=== PATIENT | male | born 1995 | race Caucasian/White ===

== ENCOUNTER 2019-04-30 08:21 | Emergency (ER) | payer OTHER ==
[~2019-04-30] VITALS: Ht 185.4 cm; Wt 81.8 kg
[~2019-04-30 08:21] MED LIST: CELE20TA PO; TRAZ-252 PO; no home meds
[2019-04-30 09:09] LABS: BASO % 0.6 % (0.0-1.0); EOS # 0.1 10^3/uL (0.0-0.50); EOS % 1.9 % (0.0-3.0); HEMATOCRIT 45.5 % (42.0-52.0); HEMOGLOBIN 15.4 g/dl (13.5-17.5); LYMPH # 1.5 10^3/uL (1.5-6.5); LYMPH % 23.7 % (24.0-44.0); MEAN CORPUSCULAR HEMOGLOBIN 32.6 pg (27.0-33.0); MEAN CORPUSCULAR HGB CONC 33.8 g/dl (32.0-36.5); MEAN CORPUSCULAR VOLUME 96.4 fl (80.0-96.0); MONO # 0.5 10^3/uL (0.0-0.8); MONO % 8.1 % (0.0-5.0); NEUTROPHILS # 4.1 10^3/uL (1.8-7.7); NEUTROPHILS % 65.4 % (36.0-66.0); PLATELET COUNT, AUTOMATED 171 10^3/uL (150-450); RED BLOOD COUNT 4.72 10^6/uL (4.30-6.10); WHITE BLOOD COUNT 6.3 10^3/uL (4.0-10.0)
[2019-04-30 09:34] LABS: ALBUMIN 4.2 GM/DL (3.2-5.2); ALT/SGPT 38 U/L (12-78); BILIRUBIN,TOTAL 0.7 MG/DL (0.2-1.0); BLOOD UREA NITROGEN 13 MG/DL (7-18); CALCIUM LEVEL 9.3 MG/DL (8.5-10.1); CARBON DIOXIDE LEVEL 32 MEQ/L (21-32); CHLORIDE LEVEL 107 MEQ/L (98-107); CREATININE FOR GFR 0.89 MG/DL (0.70-1.30); GLOMERULAR FILTRATION RATE > 60.0 (>60); GLUCOSE, FASTING 81 MG/DL (70-100); POTASSIUM SERUM 4.4 MEQ/L (3.5-5.1); SODIUM LEVEL 141 MEQ/L (136-145); TOTAL PROTEIN 7.1 GM/DL (6.4-8.2)
[2019-04-30] MEDS ORDERED: EXPOSURE KIT-ADULT 7 DAY SUPPLY PO ONE (09:45)
[2019-04-30] MEDS ORDERED: RALT40TA PO (09:51)
[2019-04-30] MEDS ORDERED: TRUVTAB PO (09:51)
[2019-04-30 10:32] VITALS: BP 111/63
[2019-04-30] MEDS ORDERED: IBUP-1114 PO (16:55)
[2019-05-01 08:34] LABS: HEPATITIS B SURFACE ANTIBODY NEGATIVE (POSITIVE)
[2019-05-01 08:44] LABS: HEPATITIS B SURFACE ANTIGEN NEGATIVE (NEGATIVE)
[2019-05-01 09:13] LABS: HEPATITIS C VIRUS ABY INDEX < 0.0 INDEX (<0.8)
== END 2019-04-30 10:33 | disposition home or self-care (01) ==
LOC: M ED 08:21
DX: Z77.21 Contact with and (suspected) exposure to potentially hazardous body fluids (principal); S61.042A Puncture wound with foreign body of left thumb without damage to nail, initial encounter; W46.1XXA Contact with contaminated hypodermic needle, initial encounter; Y92.89 Other specified places as the place of occurrence of the external cause; Y93.89 Activity, other specified; Y99.0 Civilian activity done for income or pay; Z72.0 Tobacco use; F12.10 Cannabis abuse, uncomplicated

== ENCOUNTER 2019-04-30 16:00 | Emergency (ER) | payer OTHER, SELFPAY ==
[~2019-04-30] VITALS: Ht 185.4 cm; Wt 81.8 kg
[2019-04-30 16:00] VITALS: BP 135/65
[~2019-04-30 16:00] MED LIST changes: +RALT40TA PO; +TRUVTAB PO
[2019-04-30] MEDS ORDERED: IBUP-1114 PO (16:55)
--- NOTE | 2019-05-01 07:48 | REP ---
LEFT SHOULDER, THREE VIEWS: There is no evidence of an acute fracture, dislocation or intrinsic bone disease. IMPRESSION: No fracture or dislocation. Electronically Signed by Cristi Merino MD 05/01/2019 08:41 A
== END 2019-04-30 17:05 | disposition home or self-care (01) ==
LOC: M ED 16:00
DX: S43.102A Unspecified dislocation of left acromioclavicular joint, initial encounter (principal); W01.10XA Fall on same level from slipping, tripping and stumbling with subsequent striking against unspecified object, initial encounter; Y92.099 Unspecified place in other non-institutional residence as the place of occurrence of the external cause; Y93.67 Activity, basketball; Y99.9 Unspecified external cause status; M24.412 Recurrent dislocation, left shoulder; Z72.0 Tobacco use

== ENCOUNTER 2020-03-17 12:19 | Emergency (ER) | payer MEDICAID, SELFPAY ==
[~2020-03-17] VITALS: Ht 185.4 cm; Wt 74.2 kg
[~2020-03-17 12:19] MED LIST changes: +IBUP-1114 PO
[2020-03-17 14:27] VITALS: BP 142/79
== END 2020-03-17 14:30 | disposition home or self-care (01) ==
LOC: M ED 12:19
DX: F33.9 Major depressive disorder, recurrent, unspecified (principal); F17.210 Nicotine dependence, cigarettes, uncomplicated

== ENCOUNTER 2020-08-29 17:27 | Emergency (ER) | payer OTHER ==
[~2020-08-29] VITALS: Ht 188 cm; Wt 78.3 kg
[2020-08-29 17:27] VITALS: BP 119/57
[2020-08-29] MEDS ORDERED: TRAZ-252 (17:40)
[2020-08-29] MEDS ORDERED: PROZ10CA7 (17:40)
--- NOTE | 2020-08-29 18:11 | REPVR ---
PROCEDURE INFORMATION: Exam: XR Right Knee Exam date and time: 08/29/2020 5:41 PM Age: 25 years old Clinical indication: Pain and injury or trauma; Fall; Sprain or strain; Patella or knee; Right; Additional info: Pain after falling out of truck TECHNIQUE: Imaging protocol: XR Right knee. Views: 4 or more views. COMPARISON: No relevant prior studies available. FINDINGS: Bones/joints: No acute fracture or dislocation. Joint spaces are unremarkable. Soft tissues: Mild prepatellar soft tissue swelling. IMPRESSION: No acute fracture or dislocation. Electronically signed by: Ramy Ray On 08/29/2020 18:11:47 PM
== END 2020-08-29 20:25 | disposition home or self-care (01) ==
LOC: M ED 17:27
DX: S80.01XA Contusion of right knee, initial encounter (principal); S80.211A Abrasion, right knee, initial encounter; W19.XXXA Unspecified fall, initial encounter; Y92.89 Other specified places as the place of occurrence of the external cause; Y93.89 Activity, other specified; Y99.0 Civilian activity done for income or pay; Z87.828 Personal history of other (healed) physical injury and trauma; F32.9 Major depressive disorder, single episode, unspecified; F43.10 Post-traumatic stress disorder, unspecified; R56.9 Unspecified convulsions; F17.200 Nicotine dependence, unspecified, uncomplicated; F12.10 Cannabis abuse, uncomplicated; J30.9 Allergic rhinitis, unspecified

== ENCOUNTER 2020-09-08 14:36 | Emergency (ER) | payer OTHER ==
[~2020-09-08] VITALS: Ht 188 cm; Wt 84.1 kg
[~2020-09-08 14:36] MED LIST changes: +PROZ10CA7; +TRAZ-252
[2020-09-08 14:51] VITALS: BP 133/67
== END 2020-09-08 15:50 | disposition home or self-care (01) ==
LOC: M ED 14:36
DX: R45.89 Other symptoms and signs involving emotional state (principal); J30.89 Other allergic rhinitis; Z63.0 Problems in relationship with spouse or partner

== ENCOUNTER 2020-09-13 16:43 | Emergency (ER) | payer OTHER ==
[~2020-09-13] VITALS: Ht 185.4 cm; Wt 84.1 kg
[2020-09-13 16:55] VITALS: BP 148/89
[2020-09-13] MEDS ORDERED: PROZ10CA7 PO (17:04)
== END 2020-09-13 17:53 | disposition home or self-care (01) ==
LOC: M ED 16:43
DX: F43.0 Acute stress reaction (principal); R56.9 Unspecified convulsions; F17.200 Nicotine dependence, unspecified, uncomplicated; J30.89 Other allergic rhinitis; Z79.899 Other long term (current) drug therapy

== ENCOUNTER 2022-03-09 08:51 | Emergency (ER) | payer OTHER ==
[~2022-03-09] VITALS: Ht 188 cm; Wt 76.8 kg
[~2022-03-09 08:51] MED LIST changes: +CARA1TAB6 PO; +EMTR1TAB16 PO; +ONDA4TAB6 PO; +PROT1TAB2 PO; +PROZ10CA7 PO; -TRUVTAB PO
[2022-03-09 08:52] VITALS: BP 125/64
[2022-03-09] MEDS ORDERED: IBUP200T46 PO (08:58)
== END 2022-03-09 15:28 | disposition left against medical advice (07) ==
LOC: M ED 08:51
DX: Z53.21 Procedure and treatment not carried out due to patient leaving prior to being seen by health care provider (principal)

== ENCOUNTER 2023-05-20 08:49 | Emergency (ER) | payer OTHER ==
[~2023-05-20] VITALS: Ht 188 cm; Wt 70.6 kg
[~2023-05-20 08:49] MED LIST changes: +IBUP200T46 PO
[2023-05-20] MEDS ORDERED: KETOROLAC 30 MG/ML 1ML VIAL IV ONE (11:25)
[2023-05-20 11:58] LABS: BASO # 0.1 10^3/uL (0.0-0.2); BASO % 0.9 % (0.0-1.0); EOS # 0.1 10^3/uL (0.0-0.5); EOS % 1.5 % (0.0-3.0); HEMATOCRIT 44.2 % (42.0-52.0); HEMOGLOBIN 15.3 g/dl (13.5-17.5); LYMPH # 2.2 10^3/uL (1.5-5.0); LYMPH % 41.3 % (24.0-44.0); MEAN CORPUSCULAR HGB CONC 34.6 g/dl (32.0-36.5); MEAN CORPUSCULAR VOLUME 92.5 fl (80.0-96.0); MONO # 0.6 10^3/uL (0.0-0.8); MONO % 10.8 % (2.0-8.0); NEUTROPHILS # 2.4 10^3/uL (1.5-8.5); NEUTROPHILS % 45.3 % (36.0-66.0); PLATELET COUNT, AUTOMATED 202 10^3/uL (150-450); RED BLOOD COUNT 4.78 10^6/uL (4.30-6.10); WHITE BLOOD COUNT 5.4 10^3/uL (4.0-10.0)
[2023-05-20] MEDS ORDERED: ISOVUE-370 76% 100ML VIAL As Ordered ONE (12:11)
[2023-05-20 12:18] LABS: INR 0.92; PROTHROMBIN TIME 12.6 SECONDS (12.5-14.5)
[2023-05-20 12:19] LABS: PARTIAL THROMBOPLASTIN TIME 26.5 SECONDS (24.8-34.2)
[2023-05-20 12:31] LABS: ALBUMIN 4.9 G/DL (3.2-5.2); BILIRUBIN,DIRECT 0.3 MG/DL (<0.4); TOTAL PROTEIN 7.4 G/DL (5.7-8.2)
[2023-05-20] MEDS ORDERED: ANUS25SU PR (13:33)
[2023-05-20] MEDS ORDERED: NAPR-837 PO (13:33)
[2023-05-20 14:03] VITALS: BP 133/72; TEMP 97.7; O2SAT 99
== END 2023-05-20 14:05 | disposition home or self-care (01) ==
LOC: M ED 08:49
DX: R10.32 Left lower quadrant pain (principal); K62.5 Hemorrhage of anus and rectum; J30.89 Other allergic rhinitis
CPT/HCPCS: 74177; 80047; 80076; 83690; 85025; 85610; 85730; 96374; 99284; J1885; Q9967

== ENCOUNTER → 2023-09-07 | Outpatient (CLI) | payer OTHER ==
[~2023-09-07] MED LIST changes: +ANUS25SU PR; +NAPR-837 PO
== END ==
LOC: M RAD 12:06
PROVIDERS: ATTEND Physician Assistant Medical
DX: M25.512 Pain in left shoulder (principal); Z91.81 History of falling

== ENCOUNTER 2024-08-07 15:13 | Emergency (ER) | payer OTHER ==
[~2024-08-07] VITALS: Ht 185.4 cm; Wt 77.3 kg
[~2024-08-07 15:13] MED LIST changes: +ONDA-282 PO; -ONDA4TAB6 PO
[2024-08-07 16:54] VITALS: BP 112/58; TEMP 98.8; O2SAT 98
== END 2024-08-07 16:59 | disposition home or self-care (01) ==
LOC: M ED 15:13
DX: S93.401A Sprain of unspecified ligament of right ankle, initial encounter (principal); X50.1XXA Overexertion from prolonged static or awkward postures, initial encounter; Y92.9 Unspecified place or not applicable; Y93.9 Activity, unspecified; Y99.9 Unspecified external cause status; J30.89 Other allergic rhinitis; F17.200 Nicotine dependence, unspecified, uncomplicated

== ENCOUNTER 2025-09-02 17:17 | Emergency (ER) | payer OTHER, SELFPAY ==
[~2025-09-02 17:17] MED LIST changes: +PROZ10CA11; +PROZ10CA11 PO; -PROZ10CA7; -PROZ10CA7 PO
[2025-09-02 17:58] LABS: BASO # 0.1 10^3/uL (0.0-0.2); BASO % 0.7 % (0.0-1.0); EOS # 0.0 10^3/uL (0.0-0.5); EOS % 0.1 % (0.0-3.0); LYMPH # 1.6 10^3/uL (1.5-5.0); LYMPH % 23.6 % (24.0-44.0); MONO # 0.7 10^3/uL (0.0-0.8); MONO % 9.5 % (2.0-8.0); NEUTROPHILS # 4.5 10^3/uL (1.5-8.5); NEUTROPHILS % 66.0 % (36.0-66.0); PLATELET COUNT, AUTOMATED 210 10^3/uL (150-450)
[2025-09-02 18:52] LABS: KETONE, URINE AUTO RFX NEGATIVE (NEGATIVE); LEUKOCYTE ESTERASE UR AUTO RFX NEGATIVE (NEGATIVE); NITRITE, URINE AUTO RFX NEGATIVE (NEGATIVE); RBC, URINE AUTO RFX 0 /HPF (0-3); SQUAM EPITHELIAL CELL UR AURFX 0 /HPF (0-6); WBC, URINE AUTO RFX 0 /HPF (0-3)
[2025-09-02 19:13] LABS: AMPHETAMINES LEVEL URINE NEGATIVE (NEGATIVE); BARBITURATES URINE NEGATIVE (NEGATIVE); BENZODIAZEPINES URINE NEGATIVE (NEGATIVE); COCAINE METABOLITE URINE NEGATIVE (NEGATIVE); METHADONE URINE NEGATIVE (NEGATIVE); OPIATES URINE NEGATIVE (NEGATIVE); PHENCYCLIDINE URINE NEGATIVE (NEGATIVE)
[2025-09-02 19:15] LABS: ETHYL ALCOHOL (ETHANOL) 0.005 % (0.000-0.010)
[2025-09-02 19:16] LABS: CANNABINOIDS URINE POSITIVE (NEGATIVE)
[2025-09-02 19:18] LABS: ALT/SGPT 20 U/L (7.0-40); AST/SGOT 24 U/L (<34); CALCIUM LEVEL 9.3 MG/DL (8.5-10.1); CARBON DIOXIDE LEVEL 26 MMOL/L (20-31); CHLORIDE LEVEL 107 MMOL/L (98-107); CREATININE FOR GFR 0.75 MG/DL (0.70-1.30); GLOMERULAR FILTRATION RATE > 90.0 (>60); POTASSIUM SERUM 4.1 MMOL/L (3.5-5.1); SODIUM LEVEL 144 MMOL/L (136-145)
[2025-09-02 20:00] VITALS: BP 118/62; TEMP 97.7; O2SAT 99
== END 2025-09-02 20:25 | disposition home or self-care (01) ==
LOC: M ED 17:17
DX: R56.9 Unspecified convulsions (principal); F17.290 Nicotine dependence, other tobacco product, uncomplicated; F12.10 Cannabis abuse, uncomplicated